=== PATIENT | female | born 1945 | race Caucasian/White ===

== ENCOUNTER → 2023-10-24 | Outpatient (CLI) | payer MEDICARE, OTHER ==
[~2023-10-24] MED LIST: ACET650T15 PO; ALEN70TA82 PO; AMLO10TA PO; ASPI81CH33 PO; BUPR150T12 PO; CALC1TAB30 PO; CEFD1CAP9 PO; DORZ2SOL5 OU; DOXY100C3 PO; FARX1TAB5 PO; FURO40TA2 PO; LOVA20TA2 PO; PANT-23 PO; POTA-150 PO; SODI2OPD OU; SPIR-10 PO; THERTAB52 PO; ZOLO100T PO
[2023-10-24 12:55] LABS: BASO # 0.1 10^3/uL (0.0-0.2); BASO % 0.9 % (0.0-1.0); EOS # 0.4 10^3/uL (0.0-0.5); EOS % 4.7 % (0.0-3.0); HEMATOCRIT 43.4 % (36.0-47.0); HEMOGLOBIN 14.4 g/dl (12.0-15.5); LYMPH # 2.7 10^3/uL (1.5-5.0); MEAN CORPUSCULAR HEMOGLOBIN 30.6 pg (27.0-33.0); MEAN CORPUSCULAR HGB CONC 33.2 g/dl (32.0-36.5); MEAN CORPUSCULAR VOLUME 92.3 fl (80.0-96.0); MONO # 0.9 10^3/uL (0.0-0.8); MONO % 9.7 % (2.0-8.0); NEUTROPHILS # 5.1 10^3/uL (1.5-8.5); NEUTROPHILS % 55.5 % (36.0-66.0); PLATELET COUNT, AUTOMATED 161 10^3/uL (150-450); WHITE BLOOD COUNT 9.3 10^3/uL (4.0-10.0)
[2023-10-24 13:20] LABS: THYROID STIMULATING HORMONE 2.718 uIU/ML (0.55-4.78); TOTAL 25(OH) VITAMIN D 43.3 NG/ML (20.0-100.0)
[2023-10-24 13:21] LABS: FREE T4 1.13 NG/DL (0.89-1.76); VITAMIN B12 LEVEL 706 PG/ML (211-911)
[2023-10-24 13:22] LABS: ALBUMIN 3.8 G/DL (3.2-5.2); ALKALINE PHOSPHATASE 67 U/L (46-116); ALT/SGPT 30 U/L (7.0-40); AST/SGOT 33 U/L (<34); BILIRUBIN,TOTAL 0.6 MG/DL (0.3-1.2); BLOOD UREA NITROGEN 21 MG/DL (9-23); CALCIUM LEVEL 9.3 MG/DL (8.3-10.6); CARBON DIOXIDE LEVEL 25 MMOL/L (20-31); CHLORIDE LEVEL 108 MMOL/L (98-107); CHOLESTEROL LEVEL 180 MG/DL (<200); CHOLESTEROL RISK RATIO 3.99 (<5); CREATININE FOR GFR 1.01 MG/DL (0.55-1.30); GLOMERULAR FILTRATION RATE 56.3 (>39); GLUCOSE, FASTING 181 MG/DL (74-106); HDL CHOLESTEROL 45.1 MG/DL (>40); LDL CHOLESTEROL 98.3 MG/DL (<100); NON-HDL-C 134.9 MG/DL; POTASSIUM SERUM 4.5 MMOL/L (3.5-5.1); SODIUM LEVEL 141 MMOL/L (136-145); TOTAL PROTEIN 7.5 G/DL (5.7-8.2); TRIGLYCERIDES LEVEL 183 MG/DL (<150)
[2023-10-24 13:24] LABS: FOLATE > 24.0 NG/ML (>5.4)
[2023-10-24 13:31] LABS: HEMOGLOBIN A1c 6.7 % (4.0-6.0)
== END ==
LOC: M WUC 08:39
PROVIDERS: ATTEND Registered Nurse
DX: R53.83 Other fatigue (principal); E78.2 Mixed hyperlipidemia; Z79.899 Other long term (current) drug therapy

== ENCOUNTER 2023-10-28 07:40 | Inpatient (IN) | payer MEDICARE ==
[~2023-10-28] VITALS: Ht 160 cm; Wt 85.6 kg
[2023-10-28] VITALS (7 sets, daily range): BP systolic 132–142; BP diastolic 66–75; TEMP 97.2–98.1; O2SAT 93–97
[2023-10-28] MEDS: NITROGLYCERIN 2% OINT 1 GM *U/D* PKT TOP ONE (07:55)
[2023-10-28 08:08] LABS: ABG BASE EXCESS -5.3 (-2.0-2.0); ABG HCO3 21.2 MMOL/L (22.0-26.0); ABG O2 SATURATION 98.4 % (95.0-99.0); ABG PARTIAL PRESSURE CO2 44.7 mmHg (35.0-45.0); ABG STANDARD HCO3 20.2 MMOL/L. (22.0-26.0); ABG TOTAL CO2 22.6 MMOL/L (23.0-31.0); ABG pH (ARTERIAL) 7.294 UNITS (7.350-7.450)
[2023-10-28 08:24] LABS: BASO # 0.1 10^3/uL (0.0-0.2); BASO % 0.4 % (0.0-1.0); EOS # 0.5 10^3/uL (0.0-0.5); EOS % 3.1 % (0.0-3.0); HEMATOCRIT 39.7 % (36.0-47.0); HEMOGLOBIN 12.9 g/dl (12.0-15.5); LYMPH # 1.5 10^3/uL (1.5-5.0); LYMPH % 8.9 % (24.0-44.0); MEAN CORPUSCULAR HEMOGLOBIN 30.8 pg (27.0-33.0); MEAN CORPUSCULAR HGB CONC 32.5 g/dl (32.0-36.5); MEAN CORPUSCULAR VOLUME 94.7 fl (80.0-96.0); MONO # 0.8 10^3/uL (0.0-0.8); MONO % 4.9 % (2.0-8.0); NEUTROPHILS # 13.6 10^3/uL (1.5-8.5); PLATELET COUNT, AUTOMATED 121 10^3/uL (150-450); RED BLOOD COUNT 4.19 10^6/uL (4.00-5.40); WHITE BLOOD COUNT 16.6 10^3/uL (4.0-10.0)
[2023-10-28] MEDS: LIDOCAINE 2% 5ML JELLY UROJET TOP ONE (08:25)
[2023-10-28 08:35] LABS: INR 1.09; PROTHROMBIN TIME 13.8 SECONDS (12.5-14.5)
[2023-10-28] MEDS: FUROSEMIDE 20MG/2ML VIAL IV ONE (08:49)
[2023-10-28] MEDS ORDERED: ISOVUE-370 76% 100ML VIAL As Ordered ONE (08:49)
[2023-10-28 08:50] LABS: CK-MB VALUE MASS < 1.0 NG/ML (<3.6)
[2023-10-28 08:54] LABS: THYROXINE (T4) 4.6 UG/DL (4.5-10.9)
[2023-10-28 08:55] LABS: THYROID STIMULATING HORMONE 1.087 uIU/ML (0.55-4.78)
[2023-10-28 08:59] LABS: ALBUMIN 3.4 G/DL (3.2-5.2); ALKALINE PHOSPHATASE 68 U/L (46-116); ALT/SGPT 31 U/L (7.0-40); AST/SGOT 26 U/L (<34); BILIRUBIN,DIRECT 0.2 MG/DL (<0.4); BILIRUBIN,TOTAL 0.5 MG/DL (0.3-1.2); BLOOD UREA NITROGEN 23 MG/DL (9-23); CARBON DIOXIDE LEVEL 21 MMOL/L (20-31); CHLORIDE LEVEL 114 MMOL/L (98-107); CPK CREATINE PHOSPHOKINASE 41 U/L (34-145); CREATININE FOR GFR 0.72 MG/DL (0.55-1.30); GLOMERULAR FILTRATION RATE > 60.0 (>39); GLUCOSE, FASTING 212 MG/DL (74-106); MB/CK RELATIVE INDEX 2.43 (< OR =4); POTASSIUM SERUM 3.1 MMOL/L (3.5-5.1); SODIUM LEVEL 145 MMOL/L (136-145); TOTAL PROTEIN 6.9 G/DL (5.7-8.2)
[2023-10-28] MEDS: cefTRIAXone SOD 1 GM in D5W MINI-BAG PLUS 50 ML IV ONE (09:44)
[2023-10-28] MEDS: POTASSIUM CHLORIDE 10MEQ SR TABLET PO ONE (09:44)
[2023-10-28] MEDS: KCL 10MEQ/100ML SWI (KRUN) 10 MEQ in IV 1 EA IV ONE (09:45)
[2023-10-28 10:00] LABS: CK-MB VALUE MASS < 1.0 NG/ML (<3.6)
[2023-10-28 10:01] LABS: CPK CREATINE PHOSPHOKINASE 37 U/L (34-145)
[2023-10-28] MEDS: DOXYCYCLINE HYCLATE 100 MG in D5W MINI-BAG PLUS 100 ML IV ONE (10:29)
[2023-10-28] MEDS: ASPIRIN 81MG CHEW TABLET PO ONE (10:29)
[2023-10-28 11:55] LABS: MAGNESIUM LEVEL 1.7 MG/DL (1.8-2.4)
[2023-10-28 12:04] LABS: PROCALCITONIN 0.04 ng/ml
[2023-10-28] MEDS: ATORVASTATIN 20 MG TAB PO ONE (13:21)
[2023-10-28] MEDS ORDERED: THERTAB52 PO (13:32)
[2023-10-28] MEDS ORDERED: CALC1TAB30 PO (13:32)
[2023-10-28] MEDS ORDERED: BUPR150T12 PO (13:33)
[2023-10-28] MEDS ORDERED: AMLO10TA PO (13:33)
[2023-10-28] MEDS ORDERED: LOVA20TA2 PO (13:40)
[2023-10-28] MEDS ORDERED: SODI2OPD OU (13:40)
[2023-10-28] MEDS ORDERED: ACET650T15 PO (13:40)
[2023-10-28] MEDS ORDERED: ZOLO100T PO (13:40)
[2023-10-28] MEDS ORDERED: DORZ2SOL5 OU (13:40)
[2023-10-28] MEDS ORDERED: PANT-23 PO (13:40)
[2023-10-28] MEDS ORDERED: ALEN70TA82 PO (13:40)
[2023-10-28] MEDS ORDERED: HOME MED LIST COMPLETE! XX SCH (13:45)
[2023-10-28] MEDS: MAG SULF 1GM/100ML (MAG RUN) 1 GM in IV 1 EA IV ONE (15:25)
[2023-10-28] MEDS: RIVAROXABAN 10MG TAB (XARELTO) PO SCH (17:12)
[2023-10-28] MEDS: POTASSIUM CHLORIDE 10MEQ SR TABLET PO SCH (20:42)
[2023-10-28] MEDS: SERTRALINE HCL 50 MG TAB PO SCH (20:42)
[2023-10-28] MEDS: ACETAMINOPHEN 650MG ER TAB (TYLENOL ARTHRITIS) PO SCH (20:43)
[2023-10-28] MEDS: DOXYCYCLINE HYCLATE 100MG TABLET PO SCH (20:43)
[2023-10-28] MEDS: FUROSEMIDE 40MG/4ML VIAL IV SCH (20:43)
[2023-10-29] VITALS (25 sets, daily range): BP systolic 133–160; BP diastolic 71–82; TEMP 96.9–97.8; O2SAT 90–97
[2023-10-29] MEDS: FONDAPARINUX SODIUM 2.5 MG/0.5 ML SYRINGE SC SCH (01:53)
[2023-10-29 06:13] LABS: HEMOGLOBIN 12.6 g/dl (12.0-15.5); MEAN CORPUSCULAR HEMOGLOBIN 30.3 pg (27.0-33.0); MEAN CORPUSCULAR HGB CONC 33.2 g/dl (32.0-36.5); MEAN CORPUSCULAR VOLUME 91.3 fl (80.0-96.0); PLATELET COUNT, AUTOMATED 122 10^3/uL (150-450); RED BLOOD COUNT 4.16 10^6/uL (4.00-5.40); WHITE BLOOD COUNT 15.2 10^3/uL (4.0-10.0)
[2023-10-29 06:37] LABS: BLOOD UREA NITROGEN 17 MG/DL (9-23); CALCIUM LEVEL 9.4 MG/DL (8.3-10.6); CARBON DIOXIDE LEVEL 26 MMOL/L (20-31); CHLORIDE LEVEL 106 MMOL/L (98-107); CHOLESTEROL LEVEL 154 MG/DL (<200); CHOLESTEROL RISK RATIO 2.81 (<5); CREATININE FOR GFR 0.84 MG/DL (0.55-1.30); GLOMERULAR FILTRATION RATE > 60.0 (>39); GLUCOSE, FASTING 197 MG/DL (74-106); HDL CHOLESTEROL 54.8 MG/DL (>40); MAGNESIUM LEVEL 2.1 MG/DL (1.8-2.4); NON-HDL-C 99.2 MG/DL; POTASSIUM SERUM 4.4 MMOL/L (3.5-5.1); SODIUM LEVEL 138 MMOL/L (136-145); TRIGLYCERIDES LEVEL 111 MG/DL (<150)
[2023-10-29] MEDS: cefTRIAXone SOD 1 GM in D5W MINI-BAG PLUS 50 ML IV SCH (09:44)
[2023-10-29] MEDS: ATORVASTATIN 20 MG TAB PO SCH (09:45)
[2023-10-29] MEDS: buPROPion **XL** TABLET 150MG (WELLBUTRIN XL) PO SCH (09:46)
[2023-10-29] MEDS: PANTOPRAZOLE 40MG TAB (PROTONIX) PO SCH (09:46)
[2023-10-29] MEDS: ASPIRIN 81MG CHEW TABLET PO SCH (09:46)
[2023-10-30] VITALS (10 sets, daily range): BP systolic 136–144; BP diastolic 69–72; TEMP 97.3–97.7; O2SAT 86–98
[2023-10-30 08:23] LABS: BASO % 0.3 % (0.0-1.0); EOS # 0.4 10^3/uL (0.0-0.5); EOS % 3.1 % (0.0-3.0); HEMATOCRIT 40.5 % (36.0-47.0); HEMOGLOBIN 13.8 g/dl (12.0-15.5); LYMPH # 2.1 10^3/uL (1.5-5.0); LYMPH % 16.7 % (24.0-44.0); MEAN CORPUSCULAR HEMOGLOBIN 31.2 pg (27.0-33.0); MEAN CORPUSCULAR HGB CONC 34.1 g/dl (32.0-36.5); MEAN CORPUSCULAR VOLUME 91.6 fl (80.0-96.0); MONO # 1.1 10^3/uL (0.0-0.8); MONO % 8.7 % (2.0-8.0); NEUTROPHILS % 70.8 % (36.0-66.0); PLATELET COUNT, AUTOMATED 140 10^3/uL (150-450); RED BLOOD COUNT 4.42 10^6/uL (4.00-5.40); WHITE BLOOD COUNT 12.8 10^3/uL (4.0-10.0)
[2023-10-30 08:59] LABS: BLOOD UREA NITROGEN 22 MG/DL (9-23); CALCIUM LEVEL 9.5 MG/DL (8.3-10.6); CARBON DIOXIDE LEVEL 27 MMOL/L (20-31); CHLORIDE LEVEL 103 MMOL/L (98-107); CREATININE FOR GFR 0.87 MG/DL (0.55-1.30); GLOMERULAR FILTRATION RATE > 60.0 (>39); GLUCOSE, FASTING 162 MG/DL (74-106); SODIUM LEVEL 140 MMOL/L (136-145)
[2023-10-30] MEDS ORDERED: CEFD1CAP9 PO (09:38)
[2023-10-30] MEDS ORDERED: POTA-150 PO (09:38)
[2023-10-30] MEDS ORDERED: DOXY100C3 PO (09:38)
[2023-10-30] MEDS ORDERED: FURO40TA2 PO (09:38)
[2023-10-30] MEDS ORDERED: ASPI81CH33 PO (09:38)
[2023-10-30] MEDS ORDERED: FARX1TAB5 PO (09:38)
[2023-10-30] MEDS ORDERED: SPIR-10 PO (09:38)
[2023-10-30] MEDS: COSOPT OCUMETER PLUS 10ML (DORZOLAMIDE/TIMOLOL) OU SCH (10:20)
[2023-11-02 23:07] LABS: URINE STREP PNEUMONIAE ANTIGEN NOT DETECTED (NOT DETECT)
== END 2023-10-30 14:25 | disposition home or self-care (01) | DRG 291 ==
LOC: M ED 07:40 → EDBD 07:40 → M ED INP 11:39 → EEVIPCON 11:39 → M PCU 12:40
PROVIDERS: ADMIT Internal Medicine; ATTEND Internal Medicine
PROC: B246ZZZ Ultrasonography of Right and Left Heart (ICD-10-PCS; principal; 2023-10-29)
DX: I11.0 Hypertensive heart disease with heart failure (principal); J96.01 Acute respiratory failure with hypoxia; J15.69 Pneumonia due to other Gram-negative bacteria; I50.31 Acute diastolic (congestive) heart failure; I24.89 Other forms of acute ischemic heart disease; E87.20 Acidosis, unspecified; K21.9 Gastro-esophageal reflux disease without esophagitis; F39 Unspecified mood [affective] disorder; E78.5 Hyperlipidemia, unspecified; E87.6 Hypokalemia; D69.6 Thrombocytopenia, unspecified; Z88.8 Allergy status to other drugs, medicaments and biological substances; Z86.718 Personal history of other venous thrombosis and embolism; Z95.828 Presence of other vascular implants and grafts; Z79.82 Long term (current) use of aspirin; Z79.899 Other long term (current) drug therapy

== ENCOUNTER → 2023-10-30 | Outpatient (CLI) | payer MEDICARE | LOC: M EKG 14:33 | PROVIDERS: ATTEND Internal Medicine | DX: I50.9 Heart failure, unspecified (principal); Z53.9 Procedure and treatment not carried out, unspecified reason ==

== ENCOUNTER → 2023-11-05 | Outpatient (CLI) | payer MEDICARE ==
[2023-11-05 12:04] LABS: BASO # 0.1 10^3/uL (0.0-0.2); BASO % 0.6 % (0.0-1.0); EOS # 0.3 10^3/uL (0.0-0.5); EOS % 2.4 % (0.0-3.0); HEMATOCRIT 40.2 % (36.0-47.0); MEAN CORPUSCULAR HEMOGLOBIN 30.1 pg (27.0-33.0); MEAN CORPUSCULAR HGB CONC 32.3 g/dl (32.0-36.5); MEAN CORPUSCULAR VOLUME 93.1 fl (80.0-96.0); MONO # 1.1 10^3/uL (0.0-0.8); MONO % 9.1 % (2.0-8.0); NEUTROPHILS # 8.4 10^3/uL (1.5-8.5); NEUTROPHILS % 70.3 % (36.0-66.0); PLATELET COUNT, AUTOMATED 157 10^3/uL (150-450); RED BLOOD COUNT 4.32 10^6/uL (4.00-5.40); WHITE BLOOD COUNT 11.9 10^3/uL (4.0-10.0)
[2023-11-05 12:35] LABS: ALBUMIN 3.7 G/DL (3.2-5.2); BILIRUBIN,TOTAL 0.7 MG/DL (0.3-1.2); CALCIUM LEVEL 9.3 MG/DL (8.3-10.6); CREATININE FOR GFR 1.43 MG/DL (0.55-1.30); GLOMERULAR FILTRATION RATE 37.7 (>39); MAGNESIUM LEVEL 2.4 MG/DL (1.8-2.4); POTASSIUM SERUM 4.8 MMOL/L (3.5-5.1); TOTAL PROTEIN 7.2 G/DL (5.7-8.2)
== END ==
LOC: M LAB 11:24
PROVIDERS: ATTEND Registered Nurse
DX: R06.02 Shortness of breath (principal); E83.42 Hypomagnesemia

== ENCOUNTER → 2023-11-28 | Outpatient (CLI) | payer MEDICARE ==
[2023-11-28 11:08] LABS: ALBUMIN 3.7 G/DL (3.2-5.2); BILIRUBIN,TOTAL 0.5 MG/DL (0.3-1.2); CALCIUM LEVEL 9.9 MG/DL (8.3-10.6); CREATININE FOR GFR 1.43 MG/DL (0.55-1.30); GLOMERULAR FILTRATION RATE 37.7 (>39); POTASSIUM SERUM 4.8 MMOL/L (3.5-5.1); TOTAL PROTEIN 7.3 G/DL (5.7-8.2)
== END ==
LOC: M LAB 10:16
PROVIDERS: ATTEND Registered Nurse
DX: R94.4 Abnormal results of kidney function studies (principal)

== ENCOUNTER 2023-12-10 08:55 | Inpatient (IN) | payer MEDICARE ==
[~2023-12-10] VITALS: Ht 160 cm; Wt 80.9 kg
[2023-12-10 09:22] LABS: ABG BASE EXCESS -6.2 (-2.0-2.0); ABG O2 SATURATION 99.7 % (95.0-99.0); ABG PARTIAL PRESSURE CO2 36.7 mmHg (35.0-45.0); ABG PARTIAL PRESSURE O2 281.4 mmHg (75.0-100.0); ABG STANDARD HCO3 19.5 MMOL/L. (22.0-26.0); ABG TOTAL CO2 20.1 MMOL/L (23.0-31.0); ABG pH (ARTERIAL) 7.332 UNITS (7.350-7.450)
[2023-12-10] MEDS: IPRATROPIUM 0.5MG/ALBUTEROL 2.5MG INH SOL UD 3ML (DUONEB) NEB SCH (09:27)
[2023-12-10 09:46] LABS: BASO # 0.1 10^3/uL (0.0-0.2); BASO % 0.5 % (0.0-1.0); EOS # 0.7 10^3/uL (0.0-0.5); EOS % 4.3 % (0.0-3.0); HEMATOCRIT 41.6 % (36.0-47.0); HEMOGLOBIN 13.5 g/dl (12.0-15.5); LYMPH # 1.4 10^3/uL (1.5-5.0); LYMPH % 8.2 % (24.0-44.0); MEAN CORPUSCULAR HEMOGLOBIN 30.8 pg (27.0-33.0); MEAN CORPUSCULAR HGB CONC 32.5 g/dl (32.0-36.5); MEAN CORPUSCULAR VOLUME 94.8 fl (80.0-96.0); MONO # 1.1 10^3/uL (0.0-0.8); MONO % 6.6 % (2.0-8.0); NEUTROPHILS # 13.5 10^3/uL (1.5-8.5); NEUTROPHILS % 79.9 % (36.0-66.0); PLATELET COUNT, AUTOMATED 137 10^3/uL (150-450); RED BLOOD COUNT 4.39 10^6/uL (4.00-5.40); WHITE BLOOD COUNT 16.9 10^3/uL (4.0-10.0)
[2023-12-10 09:57] LABS: CK-MB VALUE MASS < 1.0 NG/ML (<3.6)
[2023-12-10 09:59] LABS: CPK CREATINE PHOSPHOKINASE 41 U/L (34-145); MB/CK RELATIVE INDEX 2.43 (< OR =4)
[2023-12-10 10:00] LABS: ALBUMIN 3.6 G/DL (3.2-5.2); ALKALINE PHOSPHATASE 70 U/L (46-116); ALT/SGPT 27 U/L (7.0-40); AST/SGOT 26 U/L (<34); BILIRUBIN,DIRECT 0.2 MG/DL (<0.4); BILIRUBIN,TOTAL 0.6 MG/DL (0.3-1.2); BLOOD UREA NITROGEN 27 MG/DL (9-23); CARBON DIOXIDE LEVEL 22 MMOL/L (20-31); CHLORIDE LEVEL 110 MMOL/L (98-107); CREATININE FOR GFR 1.13 MG/DL (0.55-1.30); GLOMERULAR FILTRATION RATE 49.4 (>39); GLUCOSE, FASTING 248 MG/DL (74-106); POTASSIUM SERUM 4.1 MMOL/L (3.5-5.1); SODIUM LEVEL 141 MMOL/L (136-145); TOTAL PROTEIN 7.3 G/DL (5.7-8.2)
[2023-12-10] MEDS: FUROSEMIDE 40MG/4ML VIAL IV ONE (10:23)
[2023-12-10 11:29] LABS: CK-MB VALUE MASS < 1.0 NG/ML (<3.6)
[2023-12-10 11:30] LABS: CPK CREATINE PHOSPHOKINASE 24 U/L (34-145); MB/CK RELATIVE INDEX 4.16 (< OR =4)
[2023-12-10] MEDS ORDERED: ASPI81TA26 PO (12:16)
[2023-12-10] MEDS ORDERED: CELE0.09 PO (12:16)
[2023-12-10] MEDS ORDERED: SPIR-10 PO (12:16)
[2023-12-10] MEDS ORDERED: FARX1TAB5 PO (12:16)
[2023-12-10] MEDS ORDERED: FURO40TA2 PO (12:16)
[2023-12-10] MEDS ORDERED: HOME MED LIST COMPLETE! XX SCH (12:20)
[2023-12-10 15:20] VITALS: BP 146/79; TEMP 98.3; O2SAT 98
[2023-12-10] MEDS: DOCUSATE SODIUM 100MG CAPSULE PO SCH (17:12)
[2023-12-10] MEDS: FUROSEMIDE 40MG/4ML VIAL IV SCH (17:35)
[2023-12-10 19:54] VITALS: BP 131/68; TEMP 98.5; O2SAT 100
[2023-12-10 20:00] VITALS: BP 133/67; TEMP 98.7; O2SAT 97
[2023-12-10] MEDS: CALCIUM/VITAMIN D 500 MG TAB PO SCH (20:40)
[2023-12-10] MEDS: COSOPT OCUMETER PLUS 10ML (DORZOLAMIDE/TIMOLOL) OU SCH (20:40)
[2023-12-10] MEDS: SIMVASTATIN 20 MG TAB PO SCH (20:40)
[2023-12-10] MEDS: SERTRALINE HCL 50 MG TAB PO SCH (20:43)
[2023-12-11] VITALS (7 sets, daily range): BP systolic 116–134; BP diastolic 58–71; TEMP 97–98.6; O2SAT 91–98
[2023-12-11 07:17] LABS: BASO % 0.4 % (0.0-1.0); EOS # 0.3 10^3/uL (0.0-0.5); EOS % 3.4 % (0.0-3.0); HEMATOCRIT 35.4 % (36.0-47.0); HEMOGLOBIN 11.6 g/dl (12.0-15.5); LYMPH # 1.7 10^3/uL (1.5-5.0); MEAN CORPUSCULAR HEMOGLOBIN 30.5 pg (27.0-33.0); MEAN CORPUSCULAR HGB CONC 32.8 g/dl (32.0-36.5); MEAN CORPUSCULAR VOLUME 93.2 fl (80.0-96.0); MONO % 10.1 % (2.0-8.0); NEUTROPHILS # 6.9 10^3/uL (1.5-8.5); NEUTROPHILS % 68.6 % (36.0-66.0); PLATELET COUNT, AUTOMATED 116 10^3/uL (150-450)
[2023-12-11 07:38] LABS: CREATININE FOR GFR 0.98 MG/DL (0.55-1.30); GLOMERULAR FILTRATION RATE 58.3 (>39); POTASSIUM SERUM 3.6 MMOL/L (3.5-5.1)
[2023-12-11] MEDS: PANTOPRAZOLE 40MG TAB (PROTONIX) PO SCH (09:15)
[2023-12-11] MEDS: ASPIRIN 81MG ENTERIC TABLET PO SCH (09:15)
[2023-12-11] MEDS: buPROPion **XL** TABLET 150MG (WELLBUTRIN XL) PO SCH (09:15)
[2023-12-11] MEDS: DAPAGLIFLOZIN PROPANEDIOL 10MG TABLET (FARXIGA) PO SCH (09:16)
[2023-12-11] MEDS: SPIRONOLACTONE 25 MG TAB PO SCH (12:24)
[2023-12-11] MEDS: ACETAMINOPHEN 650MG ER TAB (TYLENOL ARTHRITIS) PO SCH (14:33)
[2023-12-12 03:49] VITALS: BP 110/66; TEMP 97.2; O2SAT 93
[2023-12-12 06:34] LABS: BASO % 0.4 % (0.0-1.0); EOS # 0.5 10^3/uL (0.0-0.5); EOS % 4.9 % (0.0-3.0); HEMATOCRIT 37.3 % (36.0-47.0); HEMOGLOBIN 12.5 g/dl (12.0-15.5); LYMPH # 1.9 10^3/uL (1.5-5.0); LYMPH % 20.8 % (24.0-44.0); MEAN CORPUSCULAR HEMOGLOBIN 31.2 pg (27.0-33.0); MEAN CORPUSCULAR HGB CONC 33.5 g/dl (32.0-36.5); MONO # 1.1 10^3/uL (0.0-0.8); MONO % 11.5 % (2.0-8.0); NEUTROPHILS # 5.8 10^3/uL (1.5-8.5); NEUTROPHILS % 62.1 % (36.0-66.0); PLATELET COUNT, AUTOMATED 119 10^3/uL (150-450); RED BLOOD COUNT 4.01 10^6/uL (4.00-5.40); WHITE BLOOD COUNT 9.3 10^3/uL (4.0-10.0)
[2023-12-12 06:56] LABS: CALCIUM LEVEL 8.8 MG/DL (8.3-10.6); CREATININE FOR GFR 1.06 MG/DL (0.55-1.30); GLOMERULAR FILTRATION RATE 53.2 (>39); POTASSIUM SERUM 3.4 MMOL/L (3.5-5.1)
[2023-12-12 08:00] VITALS: BP 152/67; TEMP 97.4; O2SAT 94
[2023-12-12] MEDS: POTASSIUM CHLORIDE 10MEQ SR TABLET PO SCH (08:46)
[2023-12-12] MEDS: FUROSEMIDE 40 MG TAB PO SCH (08:47)
[2023-12-12] MEDS ORDERED: PILL CUTTER 1 EACH XX ONE (08:52)
[2023-12-12] MEDS ORDERED: POTA-136 PO (10:53)
[2023-12-12] MEDS ORDERED: FURO40TA2 PO (10:53)
[2023-12-12] MEDS ORDERED: METO25TA PO (10:53)
== END 2023-12-12 12:55 | disposition home health service (06) | DRG 291 ==
LOC: M ED 08:55 → M ED INP 12:44 → M PCU 15:20
PROVIDERS: ADMIT Internal Medicine Nephrology; ATTEND Internal Medicine Nephrology
DX: I11.0 Hypertensive heart disease with heart failure (principal); I50.33 Acute on chronic diastolic (congestive) heart failure; J96.01 Acute respiratory failure with hypoxia; J81.0 Acute pulmonary edema; I50.812 Chronic right heart failure; E78.5 Hyperlipidemia, unspecified; I34.0 Nonrheumatic mitral (valve) insufficiency; M25.512 Pain in left shoulder; M41.9 Scoliosis, unspecified; M25.511 Pain in right shoulder; Z98.41 Cataract extraction status, right eye; Z85.828 Personal history of other malignant neoplasm of skin; Z98.42 Cataract extraction status, left eye; Z79.82 Long term (current) use of aspirin; Z79.899 Other long term (current) drug therapy

== ENCOUNTER 2024-03-09 03:39 | Observation (INO) | payer MEDICARE ==
[~2024-03-09] VITALS: Ht 157.5 cm; Wt 77.8 kg
[2024-03-09] VITALS (13 sets, daily range): BP systolic 113–164; BP diastolic 54–77; TEMP 97.5–98.6; O2SAT 93–98
[~2024-03-09 03:39] MED LIST changes: +ASPI81TA26 PO; +CELE0.09 PO; +METO25TA PO; +POTA-136 PO
[2024-03-09 04:12] LABS: ABG BASE EXCESS -3.2 (-2.0-2.0); ABG HCO3 20.7 MMOL/L (22.0-26.0); ABG O2 SATURATION 98.1 % (95.0-99.0); ABG PARTIAL PRESSURE CO2 33.7 mmHg (35.0-45.0); ABG PARTIAL PRESSURE O2 108.1 mmHg (75.0-100.0); ABG STANDARD HCO3 21.9 MMOL/L. (22.0-26.0); ABG TOTAL CO2 21.8 MMOL/L (23.0-31.0); ABG pH (ARTERIAL) 7.407 UNITS (7.350-7.450)
[2024-03-09 04:17] LABS: BASO # 0.1 10^3/uL (0.0-0.2); BASO % 0.5 % (0.0-1.0); EOS # 0.4 10^3/uL (0.0-0.5); EOS % 2.7 % (0.0-3.0); HEMATOCRIT 40.6 % (36.0-47.0); HEMOGLOBIN 13.4 g/dl (12.0-15.5); LYMPH # 2.2 10^3/uL (1.5-5.0); LYMPH % 16.5 % (24.0-44.0); MEAN CORPUSCULAR HEMOGLOBIN 30.4 pg (27.0-33.0); MEAN CORPUSCULAR VOLUME 92.1 fl (80.0-96.0); MONO # 0.8 10^3/uL (0.0-0.8); MONO % 6.4 % (2.0-8.0); NEUTROPHILS # 9.7 10^3/uL (1.5-8.5); NEUTROPHILS % 73.5 % (36.0-66.0); PLATELET COUNT, AUTOMATED 143 10^3/uL (150-450); RED BLOOD COUNT 4.41 10^6/uL (4.00-5.40); WHITE BLOOD COUNT 13.1 10^3/uL (4.0-10.0)
[2024-03-09 04:33] LABS: D-DIMER QUANT 1.96 ug/mL (<0.5); INR 1.02; PARTIAL THROMBOPLASTIN TIME 25.2 SECONDS (24.8-34.2); PROTHROMBIN TIME 13.7 SECONDS (12.5-14.5)
[2024-03-09 04:43] LABS: ALBUMIN 3.7 G/DL (3.2-5.2); ALKALINE PHOSPHATASE 62 U/L (35-104); ALT/SGPT 23 U/L (7.0-40); AST/SGOT 21 U/L (<34); BILIRUBIN,DIRECT 0.2 MG/DL (<0.4); BILIRUBIN,TOTAL 0.6 MG/DL (0.3-1.2); BLOOD UREA NITROGEN 27 MG/DL (9-23); CALCIUM LEVEL 9.1 MG/DL (8.3-10.6); CARBON DIOXIDE LEVEL 23 MMOL/L (20-31); CHLORIDE LEVEL 107 MMOL/L (98-107); CK-MB VALUE MASS < 1.0 NG/ML (<3.6); CPK CREATINE PHOSPHOKINASE 56 U/L (34-145); CREATININE FOR GFR 1.18 MG/DL (0.55-1.30); GLUCOSE, FASTING 225 MG/DL (74-106); MB/CK RELATIVE INDEX 1.78 (< OR =4); POTASSIUM SERUM 3.8 MMOL/L (3.5-5.1); SODIUM LEVEL 142 MMOL/L (136-145); TOTAL PROTEIN 7.7 G/DL (5.7-8.2)
[2024-03-09 04:45] LABS: THYROID STIMULATING HORMONE 3.326 uIU/ML (0.55-4.78)
[2024-03-09 04:50] LABS: RSV AMPLIFICATION NEGATIVE (NEGATIVE)
[2024-03-09 05:33] LABS: CK-MB VALUE MASS 1.6 NG/ML (<3.6)
[2024-03-09 05:39] LABS: MB/CK RELATIVE INDEX 3.07 (< OR =4)
[2024-03-09] MEDS ORDERED: ISOVUE-370 76% 100ML VIAL As Ordered ONE (05:53)
[2024-03-09] MEDS ORDERED: ENOXAPARIN 30MG/0.3ML SYRINGE (J1650 PER 10MG) SC SCH (09:00)
[2024-03-09] MEDS: SPIRONOLACTONE 25 MG TAB PO SCH (09:00)
[2024-03-09] MEDS ORDERED: POTA1TAB23 PO (09:19)
[2024-03-09] MEDS ORDERED: PROP10TA56 PO (09:19)
[2024-03-09] MEDS ORDERED: FURO40TA2 PO (09:19)
[2024-03-09] MEDS ORDERED: ALBU8.5H INH (09:19)
[2024-03-09] MEDS ORDERED: REFR0.5D8 OU (09:19)
[2024-03-09] MEDS ORDERED: ACET-683 PO (09:19)
[2024-03-09] MEDS ORDERED: HOME MED LIST COMPLETE! XX SCH (09:25)
[2024-03-09] MEDS ORDERED: MOM 30ML SUSPENSION UDC PO PRN (10:35)
[2024-03-09] MEDS: FUROSEMIDE 40MG/4ML VIAL IV SCH (13:39)
[2024-03-09] MEDS: PANTOPRAZOLE 40MG TAB (PROTONIX) PO SCH (18:15)
[2024-03-09] MEDS: POTASSIUM CHLORIDE 10MEQ SR TABLET PO SCH (18:15)
[2024-03-09] MEDS: buPROPion **XL** TABLET 150MG (WELLBUTRIN XL) PO SCH (18:15)
[2024-03-09] MEDS: ASPIRIN 81MG ENTERIC TABLET PO SCH (18:15)
[2024-03-09] MEDS: SERTRALINE HCL 50 MG TAB PO SCH (20:27)
[2024-03-09] MEDS: SIMVASTATIN 20 MG TAB PO SCH (20:27)
[2024-03-09] MEDS: COSOPT OCUMETER PLUS 10ML (DORZOLAMIDE/TIMOLOL) OU SCH (21:20)
[2024-03-10] VITALS (17 sets, daily range): BP systolic 130–154; BP diastolic 60–74; TEMP 96.5–98.3; O2SAT 93–97
[2024-03-10 06:08] LABS: HEMATOCRIT 36.1 % (36.0-47.0); HEMOGLOBIN 11.7 g/dl (12.0-15.5); MEAN CORPUSCULAR HEMOGLOBIN 29.8 pg (27.0-33.0); MEAN CORPUSCULAR HGB CONC 32.4 g/dl (32.0-36.5); MEAN CORPUSCULAR VOLUME 91.9 fl (80.0-96.0); PLATELET COUNT, AUTOMATED 139 10^3/uL (150-450); RED BLOOD COUNT 3.93 10^6/uL (4.00-5.40); WHITE BLOOD COUNT 11.7 10^3/uL (4.0-10.0)
[2024-03-10 06:37] LABS: ALBUMIN 3.4 G/DL (3.2-5.2); BILIRUBIN,TOTAL 0.6 MG/DL (0.3-1.2); CREATININE FOR GFR 1.18 MG/DL (0.55-1.30); POTASSIUM SERUM 3.6 MMOL/L (3.5-5.1); TOTAL PROTEIN 6.9 G/DL (5.7-8.2)
[2024-03-10] MEDS ORDERED: TORS20TA2 PO (13:33)
[2024-03-10] MEDS ORDERED: LOSA50TA28 PO (13:37)
== END 2024-03-10 14:31 | disposition home health service (06) ==
LOC: M ED 03:39 → EDBD 03:39 → M ED INP 10:33 → M PCU 12:00
PROVIDERS: ADMIT Student in an Organized Health Care Education/Training Program; ATTEND Student in an Organized Health Care Education/Training Program
DX: I16.1 Hypertensive emergency (principal); J96.01 Acute respiratory failure with hypoxia; J81.0 Acute pulmonary edema; I50.33 Acute on chronic diastolic (congestive) heart failure; I34.0 Nonrheumatic mitral (valve) insufficiency; Z91.118 Patient's noncompliance with dietary regimen for other reason; I50.812 Chronic right heart failure; I27.29 Other secondary pulmonary hypertension; J90 Pleural effusion, not elsewhere classified; I11.0 Hypertensive heart disease with heart failure; E78.5 Hyperlipidemia, unspecified; Z87.828 Personal history of other (healed) physical injury and trauma; Z98.890 Other specified postprocedural states; Z82.49 Family history of ischemic heart disease and other diseases of the circulatory system; Z88.8 Allergy status to other drugs, medicaments and biological substances; Z79.899 Other long term (current) drug therapy; Z79.82 Long term (current) use of aspirin
CPT/HCPCS: 36415; 36600; 71045; 71275; 80048; 80053; 80076; 82550; 82553; 82803; 83605; 83735; 83880; 84443; 84484; 85025; 85027; 85379; 85610; 85730; 87040; 87631; 93005; 93041; 93306; 94660; 94760; 96374; 96376; 97161; 99285; G0378; J1940; Q9967

== ENCOUNTER → 2024-03-20 | Outpatient (CLI) | payer MEDICARE ==
[~2024-03-20] MED LIST changes: +ACET-683 PO; +ALBU8.5H INH; +LOSA50TA28 PO; +POTA1TAB23 PO; +PROP10TA56 PO; +REFR0.5D8 OU; +TORS20TA2 PO
[2024-03-20 18:58] LABS: ALBUMIN 3.9 G/DL (3.2-5.2); BILIRUBIN,TOTAL 0.5 MG/DL (0.3-1.2); CALCIUM LEVEL 9.9 MG/DL (8.3-10.6); CREATININE FOR GFR 1.47 MG/DL (0.55-1.30); GLOMERULAR FILTRATION RATE 36.5 (>39); TOTAL PROTEIN 7.6 G/DL (5.7-8.2)
== END ==
LOC: M WUC 14:59
PROVIDERS: ATTEND Internal Medicine Cardiovascular Disease
DX: I11.0 Hypertensive heart disease with heart failure (principal); I38 Endocarditis, valve unspecified

== ENCOUNTER → 2024-06-23 | Outpatient (CLI) | payer MEDICARE ==
[~2024-06-23] MED LIST changes: +AMLO-751 PO; -AMLO10TA PO
== END ==
LOC: M LAB 12:03
PROVIDERS: ATTEND Registered Nurse
DX: E11.69 Type 2 diabetes mellitus with other specified complication (principal)

== ENCOUNTER → 2024-09-17 | Outpatient (CLI) | payer MEDICARE ==
[~2024-09-17] MED LIST changes: +ACET-1515 PO; +ACET-840 PO; -ACET650T15 PO; +AMIO200T37 PO; +ASPI81CH48 PO; +ELIQ5TAB PO; +FARX1TAB3 PO; +FERR324T21 PO; +METO50TA7 PO; +PANT40TA29 PO; +TIMO0.5S20
== END ==
LOC: M RAD 11:09
PROVIDERS: ATTEND Nurse Practitioner Family
DX: S32.10XA Unspecified fracture of sacrum, initial encounter for closed fracture (principal); W18.30XA Fall on same level, unspecified, initial encounter; Y92.009 Unspecified place in unspecified non-institutional (private) residence as the place of occurrence of the external cause